=== PATIENT | female | born 1940 | race Caucasian/White ===

== ENCOUNTER 2020-06-02 09:04 | Outpatient (CLI) | payer MEDICARE, SELFPAY ==
--- NOTE | ~2020-06-02 | XR_ITS ---
EXAMINATION: XR thoracic spine 3V DATE: 06/02/2020 09:29 INDICATION: Thoracic radiculopathy TECHNIQUE: AP, lateral and lateral swimmer's views of the thoracic spine were obtained. COMPARISON: None. FINDINGS: There is mild S-shaped curvature of the thoracic spine. Respiratory motion limits the exami nation. The vertebral body heights appear to be maintained. There is focal kyphosis centered in the l ower thoracic spine. There is anterior loss of intervertebral disc space height in the lower thoracic spine. Bone alignment is normal. No fracture is identified. Small degenerative osteophytes project f rom the anterior endplates of multiple vertebral bodies. Calcified left hilar lymph nodes are consist ent with old granulomatous disease. IMPRESSION: 1. Mild thoracic spondylosis without acute findings. Reviewed, dictated and finalized at location A. UREMENT SERVICES MANAGER
== END 2020-06-02 09:05 | disposition home or self-care (01) ==
PROVIDERS: PCP Family Medicine; Visit Provider Family Medicine
DX: M54.14 Radiculopathy, thoracic region (principal)
CPT/HCPCS: 72072

== ENCOUNTER 2020-07-08 10:08 | Inpatient (IN) | payer MEDICARE, SELFPAY ==
[2020-07-08] VITALS (7 sets, daily range): BP systolic 99–143; BP diastolic 63–86; PULSE 63–112; RESP 18–20; TEMP 36.7; O2SAT 92–96; BMI 27.3
--- NOTE | ~2020-07-08 | CT_ITS ---
EXAMINATION: CTA chest PE protocol DATE: 07/08/2020 12:13 INDICATION: Weakness and chest pain TECHNIQUE: Computed tomography angiography (CTA) of the chest was performed with 100 mL Omnipaque-350 intravenous contrast timed to evaluate the pulmonary arteries. Coronal maximum intensity projection 3D-reconstructions were created by the technologist. The dose-length product (DLP) was 368.55 mGy-cm. Automated exposure control and iterative reconstruction technique were employed. COMPARISON: None. FINDINGS: Contrast bolus is well timed for opacification of the pulmonary arteries. There are acute e mboli in the distal aspects of the bilateral main pulmonary arteries which extend into proximal segme ntal branches of the lingular and left lower lobe pulmonary arteries and the right upper, middle, and lower lobe pulmonary arteries. There is straightening of the interventricular septum of the heart. T he heart size is normal. There is mild emphysema. Dependent atelectasis is noted. There is a large hi atal hernia. There are no pathologically enlarged thoracic lymph nodes. There is moderate thoracic sp ondylosis. IMPRESSION: 1. Bilateral central pulmonary emboli with extension into proximal segmental pulmonary arterial branc hes throughout the right lung and in the lingula and lower lobe on the left. Some evidence of right h eart strain. These findings were discussed with the Emergency Department at 1232 hours on 07/08/2020. Reviewed, dictated and finalized at location A. Y WRAPPING MACHINE OPERATOR IMPRESSION: 1. Bilateral central pulmonary emboli with extension into proximal segmental pu lmonary arterial branches throughout the right lung and in the lingula and lowe r lobe on the left. Some evidence of right heart strain. These findings were di scussed with the Emergency Department at 1232 hours on 07/08/2020.
--- NOTE | ~2020-07-08 | XR_ITS ---
EXAMINATION: XR chest 2V DATE: 07/08/2020 11:07 INDICATION: Weakness and chest pain TECHNIQUE: PA and lateral views of the chest are obtained. COMPARISON: None available FINDINGS: The lungs are free of acute opacities. There is a small left pleural effusion. No pneumotho rax is identified. The heart size is normal. There is a large hiatal hernia. Bilateral breast implant s are noted. There is moderate thoracic spondylosis with focal exaggerated kyphosis at the thoracolum bar junction. IMPRESSION: 1. Small pleural effusions. 2. Large hiatal hernia. Reviewed, dictated and finalized at location A. IN HOUSEKEEPER
--- NOTE | 2020-07-08 10:22 | ED.WEAKNESS ---
HPI - Weakness General Chief complaint: Weakness Stated complaint: fatigue Time Seen by Provider: 07/08/20 10:22 Source: patient and family Mode of arrival: wheelchair Limitations: no limitations History of Present Illness HPI Narrative: 79-year-old woman comes in today complaining of a week of progressive weakness and fatigue with exertion. Patient states that she has had some brief intermittent chest pain that comes from under her skin the lasts only a moment or 2. She denies recent illness, fever, cough, shortness of breath, nausea, vomiting, dysuria, syncope, visual changes, facial droop, unilateral weakness, confusion, and language difficulties. Complaint: generalized weakness and lack of energy Onset (ago): week(s) (1) Duration: constant and progressively worsening Location: generalized Migration: none Severity: moderate Relieving factors: rest Exacerbating factors: exertion Associated symptoms: chest pain Related Data Home Medications Medication Instructions Recorded Confirmed multivitamin [Daily Multivitamin] 1 tablet PO DAILY 07/08/20 07/08/20 Allergies Allergy/AdvReac Type Severity Reaction Status Date / Time No Known Allergies Allergy Verified 07/08/20 10:24 Review of Systems Constitutional: Constitutional: Denies chills, Reports fatigue, Denies fever(s) and Reports weakness Eyes: Eyes: Denies change in vision and Denies photophobia ENT: Denies dysphagia, Denies nasal congestion and Denies sore throat Cardiovascular: Cardiovascular: Reports as per HPI, Reports chest pain and Denies radiating jaw, neck or arm pain Respiratory: Respiratory: Denies cough, Denies dyspnea and Denies wheezing Gastrointestinal: Gastrointestinal: Denies abdominal pain, Denies diarrhea, Denies nausea and Denies vomiting Genitourinary: Genitourinary: Reports nocturia and Denies dysuria Musculoskeletal: Musculoskeletal: Denies back pain, Denies arthralgias and Denies joint swelling Integumentary/Breasts: Skin/Breast: Denies pruritus, Denies erythema and Denies rash Neurologic: Denies vertigo, Denies dizziness and Denies syncope Hematologic/Lymphatic: Hematologic/Lymphatic: Denies easy bleeding and Denies easy bruising Allergic/Immunologic: Allergic/Immunologic: Denies lip swelling and Denies tongue swelling PMFSH Surgical History Surgical History Hx of appendectomy Hx of tonsillectomy Social History Social History Smoking status: Never smoker Alcohol intake: never Substance use: never Living arrangements: with family Exam Const: General: healthy appearing and alert Nutritional Appearance: obese Orientation/consciousness: patient oriented x3 Other: mild acute distress. HENMT: Head: normal to inspection Ears: external ears normal and TM's normal bilaterally General nose exam: Normal nares present Face and sinus: normal facial exam Mouth: Yes moist mucous membranes Throat: posterior oropharynx normal Eyes: Conjunctivae: conjunctivae normal EOM: EOMs intact bilaterally Neck: Neck: normal visual inspection and no lymphadenopathy Resp: Effort & Inspection: normal respiratory effort and not labored Auscultation: clear to auscultation bilaterally, no rales, no rhonchi and no wheezes Cardio: Rate: tachycardic Rhythm: regular rhythm Heart sounds: no murmurs GI: GI Palp: Yes Soft to palpation and No Tenderness to palpation present (GI) Auscultation: normal bowel sounds Skin: General skin exam: normal color, no jaundice and no pallor Rashes: no rashes Neuro: General: patient oriented x3, moves all extremities, no focal motor deficits and CN's II-XI intact bilaterally Speech: normal speech Extrem: General: normal to inspection and no clubbing, cyanosis or edema Psych: Appearance: grossly normal and well kempt Mental Status: mental status grossly normal Affect: normal affect Att
--- NOTE | 2020-07-08 10:30 | ECG_ITS ---
Measurements Intervals [place] Rate: 102 P: 18 GA: 165 QRS: 63 QRSD: 86 T: 26 QT: 353 QTc: 461 Interpretive Statements SINUS TACHYCARDIA DELAYED PRECORDIAL R/S TRANSITION BORDERLINE T WAVE ABNORMALITY- INFERIOR LEADS BASELINE ARTIFACT- I, II, III, AVR, AVL, AVF, V3-V6 BORDERLINE ECG Electronically Signed On 07-10-2020 8:31:46 LANDSCAPE DESIGNER by Gunner Funk D.O.
[2020-07-08 10:37] LABS: Add Urine Microscopic? YES; Appearance Urine Clear (Clear); Bilirubin Urine Negative (Negative); Blood Urine Negative (Negative); Color Urine Yellow (Yellow); Glucose Urine UA 3+ (Negative); Ketones Urine 2+ (Negative); Leukocyte Esterase Ur Negative LEU/UL (Negative); Nitrate Urine Negative (Negative); Protein Urine Negative (Negative); Specific Grav Ur 1.015 (1.010-1.020); Urobilinogen Urine 0.2 mg/dL (0.2-1.0); pH Urine 5.5 (5.0-8.0)
[2020-07-08 10:41] LABS: RBC Urine None seen /hpf (0-2); Squamous Epithelial Cell Urine Rare /hpf (Few); WBC Urine None seen /hpf (0-3)
[2020-07-08 10:42] LABS: Bacteria Urine Trace /hpf
[2020-07-08 10:51] LABS: Basophils Absolute Auto 0.02 K/mm3 (0.00-0.10); Basophils Percent Auto 0.2 % (0.0-1.0); Eosinophils Absolute Auto 0.04 K/mm3 (0.02-0.50); Eosinophils Percent Auto 0.5 % (1.0-6.0); Hematocrit 47.7 % (35.0-42.0); Hemoglobin 16.1 g/dL (11.7-13.8); Immature Granulocyte Absolute 0.02 K/mm3 (0.00-0.00); Immature Granulocyte Percent A 0.2 % (0.0-0.0); Lymphocytes Absolute Auto 0.86 K/mm3 (1.10-4.50); Mean Corpuscular HGB Conc 33.8 g/dL (32.0-36.0); Mean Corpuscular Hemoglobin 29.3 pg (27.0-31.0); Mean Corpuscular Volume 86.7 fL (78.0-102.0); Mean Platelet Volume 10.7 fl (9.2-11.8); Monocytes Absolute Auto 0.67 K/mm3 (0.10-0.90); Monocytes Percent Auto 7.8 % (2.0-11.0); Neutrophils Percent Auto 81.3 % (50.0-70.0); Platelet Count Result 206 K/mm3 (150-420); Red Cell Distribution Width 12.2 % (11.6-14.4); White Blood Count 8.6 K/mm3 (4.8-10.8)
[2020-07-08 11:08] LABS: Glucose Point of Care 444 (65-105)
[2020-07-08 11:10] LABS: Lactic Acid Reflex 2.4 mmol/L (0.4-2.0)
[2020-07-08 11:12] LABS: INR 1.1; Partial Thromboplastin Time 26.8 SEC (23.90-30.70); Prothrombin Time 11.6 Seconds (9.50-12.10)
[2020-07-08 11:15] LABS: D Dimer 5.61 mg/L (0.19-0.50)
[2020-07-08 11:17] LABS: Alanine Aminotransferase 34 U/L (14-59); Albumin Level 3.5 g/dL (3.4-5.0); Alkaline Phosphatase 98 U/L (46-116); Anion Gap 16 mmol/L (8-16); Aspartate Amino Transferase 15 U/L (15-37); Bilirubin,Total 0.8 mg/dL (0.00-1.00); Blood Urea Nitrogen 16 mg/dL (7-18); CRP 6.8 mg/dL (0.0-0.9); Calcium 9.3 mg/dL (8.5-10.1); Carbon Dioxide 22 mmol/L (21-32); Chloride 96 mmol/L (98-108); Estimated Glomerular Filt Rate 56; Sodium 134 mmol/L (136-145); Total Protein 7.5 g/dL (6.4-8.2)
[2020-07-08 11:18] LABS: Glucose 562 mg/dL (70-99); Osmolality Calculated 305 mOsm/kg (285-295)
[2020-07-08 11:19] LABS: Thyroid Stimulating Hormone Reflex 2.41 u/IU/mL (0.36-3.74); Troponin I 10.3 ng/L (0.00-60.4)
[2020-07-08] MEDS: SODIUM CHLORIDE 0.9% IV 1,000 ML 999 ML IV CONT (11:35)
[2020-07-08 11:44] LABS: Hemoglobin A1C > 13.7 % (<5.7)
[2020-07-08 12:53] LABS: Glucose Point of Care 398 (65-105)
[2020-07-08] MEDS: ENOXAPARIN 100 MG/ML SYRINGE 85 MG SUB-Q (12:56)
[2020-07-08] MEDS: INSULIN HUMAN REGULAR (*BKC) 100 UNITS/ML 10 UNITS SUB-Q (12:57)
[2020-07-08 13:46] LABS: Reflex Lactic Acid Yes or No Add Lactic
--- NOTE | 2020-07-08 14:03 | PM.IMHP ---
H&P: HPI History of Present Illness Date/Time: 07/08/20 14:03 Chief Complaint: SOB, weakness Narrative: Annmarie Wilks is a 79 year old female who comes to the hospital for weakness and increased SOB. Pt states she is not on any medications except a multivitamin. She saw her PCP about 3 weeks ago for left sided stabbing pains and at that time she was feeling a little weak than normal. Over the last week and especially the last couple days the Pt admits to increased weakness and increased SOB with increased sensation of the stabbing pains under her skin at the left side of her chest. Prior to seeing her PCP 3 weeks ago she admits that she has not seen a provider for about 3 years. Pt is a former smoker 30 years ago and is not on any hormone therapy. Pt admits to being rather sedentary since her partner . Pt does say that her breathing has improved since coming to the hospital. Currently she is on room air with SpO2 95% or better. Pt just found out today she is diabetic and admits to having lost 30 lbs over the last 3 months and has had decreased appetite as well. Review of Systems Constitutional: Constitutional: Reports no additional constitutional complaints, Denies fever(s), Denies headache(s), Reports weakness and Reports weight loss Cardiovascular: Cardiovascular: Reports no additional cardiovascular complaints, Reports chest pain (as noted in the HPI) and Reports chest pain at rest (as noted in the HPI) Respiratory: Respiratory: Reports no additional respiratory complaints, Reports dyspnea (and this has improved) and Reports dyspnea on exertion (this has gotten worse over the last couple days to week) Gastrointestinal: Gastrointestinal: Reports no additional gastrointestinal complaints Comments: decreased appetite Musculoskeletal: Musculoskeletal: Reports muscle weakness Neurologic: Reports system reviewed and no additional complaints, except as documented, Denies dizziness, Denies headache(s), Denies lack of coordination, Denies focal weakness and Denies loss of vision [facility] Past Medical History Medical History (Updated 07/08/20 @ 14:31 by ALINE Hogan) Bilateral pulmonary embolism Chest pain Diabetes mellitus, new onset Electrolyte imbalance Surgical History Surgical History Hx of appendectomy Hx of tonsillectomy Social History Social History Smoking status: Former smoker Tobacco type: cigarettes Second hand tobacco smoke exposure: Yes Smoking end date: 05/19/89 Alcohol intake: never Substance use: never Living arrangements: with family Gender identity (if verbalized by the patient): Female Spiritual care concerns: No Meds Home Medications and Allergies Home Medications Medication Instructions Recorded Confirmed Type multivitamin [Daily Multivitamin] 1 tablet PO DAILY 07/08/20 07/08/20 History Allergies Allergy/AdvReac Type Severity Reaction Status Date / Time No Known Allergies Allergy Verified 07/08/20 10:24 Vital Signs Vital Signs - 24 hr 07/08/20 10:15 07/08/20 12:26 07/08/20 12:47 Temperature 98.1 F Pulse Rate 109 H 92 63 Respiratory Rate 20 Blood Pressure 143/86 H 122/74 112/63 Pulse Oximetry 95 96 95 07/08/20 13:30 Temperature 98.1 F Pulse Rate 100 Respiratory Rate 18 Blood Pressure 128/83 Pulse Oximetry 95 Exam Const: General: cooperative, ill appearing and uncomfortable Nutritional Appearance: overweight Resp: Effort & Inspection: labored and no retractions Auscultation: rhonchi (mild scattered throughout) and diminished lung sounds Cardio: Rate: regular rate Heart sounds: S1 normal heart sound present and S2 normal heart sound present GI: GI Palp: Yes Soft to palpation and No Tenderness to palpation present (GI) Neuro: General: oriented to person, oriented to place and oriented to time Cranial nerves: Yes CN's I
[2020-07-08] MEDS: SODIUM CHLORIDE 0.9% IV 1,000 ML 125 ML IV CONT ×2 (14:13→22:02)
[2020-07-08 14:20] LABS: Lactic Acid 1.5 mmol/L (0.4-2.0)
[2020-07-08 16:52] LABS: Glucose Point of Care 313 (65-105)
[2020-07-08] MEDS: WARFARIN (*PBKC) 5 MG TABLET PO (16:59)
[2020-07-08 17:30] LABS: Troponin I 20.1 ng/L (0.00-60.4)
[2020-07-08 20:36] LABS: Glucose Point of Care 292 (65-105)
[2020-07-08 23:31] LABS: Troponin I 18.8 ng/L (0.00-60.4)
[2020-07-09] VITALS (8 sets, daily range): BP systolic 121–141; BP diastolic 66–84; PULSE 74–91; RESP 18–20; TEMP 36.2–36.9; O2SAT 92–94
[2020-07-09] MEDS: ENOXAPARIN 100 MG/ML SYRINGE 85 MG SUB-Q ×3 (00:40→20:48)
[2020-07-09 05:28] LABS: Basophils Absolute Auto 0.02 K/mm3 (0.00-0.10); Basophils Percent Auto 0.3 % (0.0-1.0); Eosinophils Absolute Auto 0.16 K/mm3 (0.02-0.50); Eosinophils Percent Auto 2.6 % (1.0-6.0); Hematocrit 40.8 % (35.0-42.0); Hemoglobin 13.7 g/dL (11.7-13.8); Immature Granulocyte Absolute 0.02 K/mm3 (0.00-0.00); Immature Granulocyte Percent A 0.3 % (0.0-0.0); Lymphocytes Absolute Auto 0.99 K/mm3 (1.10-4.50); Lymphocytes Percent Auto 16.3 % (18.0-42.0); Mean Corpuscular HGB Conc 33.6 g/dL (32.0-36.0); Mean Corpuscular Hemoglobin 29.6 pg (27.0-31.0); Mean Corpuscular Volume 88.1 fL (78.0-102.0); Mean Platelet Volume 10.4 fl (9.2-11.8); Monocytes Percent Auto 8.2 % (2.0-11.0); Neutrophils Absolute Auto 4.4 K/mm3 (1.7-7.2); Neutrophils Percent Auto 72.3 % (50.0-70.0); Platelet Count Result 192 K/mm3 (150-420); Red Blood Count 4.63 M/mm3 (4.20-5.40); Red Cell Distribution Width 12.3 % (11.6-14.4); White Blood Count 6.1 K/mm3 (4.8-10.8)
[2020-07-09 05:40] LABS: INR 1.2; Prothrombin Time 12.6 Seconds (9.50-12.10)
[2020-07-09 05:47] LABS: Alanine Aminotransferase 19 U/L (14-59); Albumin Level 2.7 g/dL (3.4-5.0); Alkaline Phosphatase 74 U/L (46-116); Anion Gap 13 mmol/L (8-16); Aspartate Amino Transferase 16 U/L (15-37); Bilirubin,Total 0.6 mg/dL (0.00-1.00); Blood Urea Nitrogen 12 mg/dL (7-18); Calcium 7.9 mg/dL (8.5-10.1); Carbon Dioxide 22 mmol/L (21-32); Chloride 102 mmol/L (98-108); Estimated CRCL calculation 56 ml/min; Estimated Glomerular Filt Rate > 60; Glucose 330 mg/dL (70-99); Osmolality Calculated 296 mOsm/kg (285-295); Potassium 3.6 mmol/L (3.5-5.1); Sodium 137 mmol/L (136-145); Total Protein 5.9 g/dL (6.4-8.2)
[2020-07-09] MEDS: SODIUM CHLORIDE 0.9% IV 1,000 ML 125 ML IV CONT (06:00)
[2020-07-09] MEDS: metFORMIN HCL XR 500 MG TAB.SR.24H PO ×2 (08:20→16:56)
[2020-07-09] MEDS: MULTIVITAMINS THERAPEUTIC TAB (*BKC) 1 TABLET PO (08:20)
[2020-07-09 11:29] LABS: Glucose Point of Care 314 (65-105)
--- NOTE | 2020-07-09 14:09 | PM.IMPN ---
Progress Note: A&P Assessment and Plan (1) Bilateral pulmonary embolism: Code(s): I26.99 - Other pulmonary embolism without acute cor pulmonale Status: Acute Assessment and Plan: 07/08/2020 Radiology report indicates: Bilateral central PE with extension into proximal segmental pulmonary branches throughout right lung and in lingula & lower lobe of the left with evidence of right heart strain, first troponin negative, no increased oxygen demand at this time, on room air, minimal labored breathing, Therapeutic Lovenox while bridging Coumadin, daily INR, cardiac monitoring, current INR 1.1 07/09/2020 Continue with Lovenox and bridge to Coumadin, INR this AM 1.2, will continue to monitor, no signs of bleeding. (2) Diabetes mellitus, new onset: Code(s): E11.9 - Type 2 diabetes mellitus without complications Status: Acute Assessment and Plan: 07/08/2020 Glucose in the ER was 562, Pt given insulin in ER, 1 Liter NS bolus, 125 ml/h on the floor NS, SSI med dose, hypoglycemic protocol, A1C > 13.7, Carb Consistent Diet, ACHS Accu-checks, UA shows: 3+ glucose, 2+ ketones, trace bacteria, Post ER SQ insulin glucose 398, Osmolality 305, Metformin ER started 500 mg daily at this time. 07/09/2020 Continue as above with following changes, increased SSI from Med to High, changed Metformin to BID, DC'ed IVF, Glucose low 300s and hoping changes will improve glycemic control. (3) Chest pain: Code(s): R07.9 - Chest pain, unspecified Status: Acute Assessment and Plan: 07/08/2020 Pt states intermittent stabbing like pain just under her skin, initial Troponin 10.3 (negative values are 0.00 to 60.4), cardiac monitoring, morphine for pain, trending Troponin, monitoring VS Q4H 07/09/2020 CP improved today, not requiring pain medications, Serial Troponin: 10.3, 20.1, 18.8, VSS (4) Electrolyte imbalance: Code(s): E87.8 - Other disorders of electrolyte and fluid balance, not elsewhere classified Status: Acute Assessment and Plan: 07/08/2020 Na and Cl were a little low at 134/96, Pt received NS bolus in the ER and will continue with 125 ml/h on the floor. 07/09/2020 Electrolytes within normal limits today, Calculated Ca++ 8.9 Subjective Date/time seen: 07/09/20 14:09 Pt states she is breathing a little better today. She has not had any sever chest pain and states the sharp pains she was having are really light today and that she does not require any pain medication for this pain. Pt has not other complaints today. No changes in appetite and has not complained of any abdominal pain after having started the Metformin. I provided education to the Pt regarding Multivitamins, dietary intake, and Coumadin. Pt verbalized understanding. Review of Systems Constitutional: Constitutional: Reports no additional constitutional complaints Cardiovascular: Cardiovascular: Reports chest pain (Improved today, no Pain medication requirement, tolerable) Respiratory: Respiratory: Reports dyspnea (Improved today, no extra O2 requirement) Gastrointestinal: Gastrointestinal: Reports no additional gastrointestinal complaints, Denies change in stool character, Denies GI cramping and Denies dyspepsia Musculoskeletal: Musculoskeletal: Reports no additional musculoskeletal complaints Exam Const: General: cooperative, comfortable (Yesterday facial expression indicated discomfort, today improved), no acute distress, alert, awake and Physically active Resp: Effort & Inspection: normal respiratory effort Auscultation: clear to auscultation bilaterally Cardio: Rate: regular rate Heart sounds: S1 normal heart sound present and S2 normal heart sound present GI: GI Palp: Yes Soft to palpation and No Tenderness to palpation present (GI) Auscultation: normal bowel sounds Neuro: General: oriented to person, oriented to place and oriented to time Cranial nerves: Yes CN's II-XII intact bilaterally (grossly intact ) Extrem: General: full ROM
--- NOTE | 2020-07-09 15:35 | PC.NURSE ---
24 hour urine completed. Taken to lab
[2020-07-09 16:31] LABS: Glucose Point of Care 294 (65-105)
[2020-07-09] MEDS: WARFARIN (*PBKC) 5 MG TABLET PO (16:56)
[2020-07-09 20:50] LABS: Glucose Point of Care 268 (65-105)
[2020-07-10] VITALS: BP 138/88; PULSE 81; RESP 20; TEMP 37.1; O2SAT 93
[2020-07-10 03:51] VITALS: BP 142/75; PULSE 87; RESP 20; TEMP 37.3; O2SAT 93
[2020-07-10 05:24] LABS: Hematocrit 39.6 % (35.0-42.0); Hemoglobin 13.7 g/dL (11.7-13.8); Mean Corpuscular HGB Conc 34.6 g/dL (32.0-36.0); Mean Corpuscular Hemoglobin 29.8 pg (27.0-31.0); Mean Corpuscular Volume 86.3 fL (78.0-102.0); Mean Platelet Volume 11.5 fl (9.2-11.8); Platelet Count Result 160 K/mm3 (150-420); Red Blood Count 4.59 M/mm3 (4.20-5.40); Red Cell Distribution Width 12.1 % (11.6-14.4); White Blood Count 7.2 K/mm3 (4.8-10.8)
[2020-07-10 05:35] LABS: Anion Gap 12 mmol/L (8-16); Blood Urea Nitrogen 7 mg/dL (7-18); Calcium 7.9 mg/dL (8.5-10.1); Carbon Dioxide 21 mmol/L (21-32); Chloride 102 mmol/L (98-108); Estimated CRCL calculation 74 ml/min; Estimated Glomerular Filt Rate > 60; Glucose 314 mg/dL (70-99); INR 1.5; Osmolality Calculated 290 mOsm/kg (285-295); Potassium 3.2 mmol/L (3.5-5.1); Prothrombin Time 15.8 Seconds (9.50-12.10); Sodium 135 mmol/L (136-145)
[2020-07-10 07:35] VITALS: BP 131/80; PULSE 89; RESP 20; TEMP 36.7; O2SAT 94
[2020-07-10 08:00] VITALS: PULSE 89
[2020-07-10] MEDS: MULTIVITAMINS THERAPEUTIC TAB (*BKC) 1 TABLET PO (08:25)
[2020-07-10] MEDS: ENOXAPARIN 100 MG/ML SYRINGE 85 MG SUB-Q (08:26)
[2020-07-10] MEDS: metFORMIN HCL XR 500 MG TAB.SR.24H PO (08:26)
[2020-07-10] MEDS: POTASSIUM CHLORIDE 20 MEQ TABLET 40 MEQ PO (09:01)
--- NOTE | 2020-07-10 11:05 | PM.DS ---
DS: Admitting Diagnosis Admitting Diagnosis Admitting Diagnosis: PE, New onset DM <ALINE Hogan - Last Filed: 07/10/20 12:07> DS: Discharge Diagnosis Discharge Diagnosis (1) Bilateral pulmonary embolism: Code(s): I26.99 - Other pulmonary embolism without acute cor pulmonale <ALINE Hogan - Last Filed: 07/10/20 12:07> Status: Acute <ALINE Hogan - Last Filed: 07/10/20 12:07> Assessment and Plan: 07/08/2020 Radiology report indicates: Bilateral central PE with extension into proximal segmental pulmonary branches throughout right lung and in lingula & lower lobe of the left with evidence of right heart strain, first troponin negative, no increased oxygen demand at this time, on room air, minimal labored breathing, Therapeutic Lovenox while bridging Coumadin, daily INR, cardiac monitoring, current INR 1.1 07/09/2020 Continue with Lovenox and bridge to Coumadin, INR this AM 1.2, will continue to monitor, no signs of bleeding. 07/10/2020 Will be sending Pt home with Lovenox so that she can continue with injections while bridging Coumadin, INR today 1.5, anticipate Pt will be therapeutic on the low side in 2-3 days, will give a 5 days script of Lovenox BID with order for INR prior to seeing her PCP. <ALINE Hogan - Last Filed: 07/10/20 12:07> (2) Diabetes mellitus, new onset: Code(s): E11.9 - Type 2 diabetes mellitus without complications <ALINE Hogan - Last Filed: 07/10/20 12:07> Status: Acute <ALINE Hogan - Last Filed: 07/10/20 12:07> Assessment and Plan: 07/08/2020 Glucose in the ER was 562, Pt given insulin in ER, 1 Liter NS bolus, 125 ml/h on the floor NS, SSI med dose, hypoglycemic protocol, A1C > 13.7, Carb Consistent Diet, ACHS Accu-checks, UA shows: 3+ glucose, 2+ ketones, trace bacteria, Post ER SQ insulin glucose 398, Osmolality 305, Metformin ER started 500 mg daily at this time. 07/09/2020 Continue as above with following changes, increased SSI from Med to High, changed Metformin to BID, DC'ed IVF, Glucose low 300s and hoping changes will improve glycemic control. 07/10/2020 Pt was on a medium SSI and this was increased to high SSI yesterday, will continue Metformin BID at [place] and will have Pt start Lantus 10 Units daily, will also write for Glucose monitoring supplies. Pt to f/u with PCP regarding new DM when she follows up for post hospitalization and INR lab work <ALINE Hogan - Last Filed: 07/10/20 12:07> (3) Chest pain: Code(s): R07.9 - Chest pain, unspecified <ALINE Hogan - Last Filed: 07/10/20 12:07> Status: Acute <ALINE Hogan - Last Filed: 07/10/20 12:07> Assessment and Plan: 07/08/2020 Pt states intermittent stabbing like pain just under her skin, initial Troponin 10.3 (negative values are 0.00 to 60.4), cardiac monitoring, morphine for pain, trending Troponin, monitoring VS Q4H 07/09/2020 CP improved today, not requiring pain medications, Serial Troponin: 10.3, 20.1, 18.8, VSS 07/10/2020 Pt has not complained of any CP today <ALINE Hogan - Last Filed: 07/10/20 12:07> (4) Electrolyte imbalance: Code(s): E87.8 - Other disorders of electrolyte and fluid balance, not elsewhere classified <ALINE Hogan - Last Filed: 07/10/20 12:07> Status: Acute <ALINE Hogan - Last Filed: 07/10/20 12:07> Assessment and Plan: 07/08/2020 Na and Cl were a little low at 134/96, Pt received NS bolus in the ER and will continue with 125 ml/h on the floor. 07/09/2020 Electrolytes within normal limits today, Calculated Ca++ 8.9 07/10/2020 Potassium 3.2 this AM, supplemented with 40 mEq, recheck chemistry as outpatient <Heber Wilson, TRAFFIC REPRESENTATIVE-C - Last Filed: 07/10/20 12:07> DS: Summary Hospital Course Hospital Course: Pt breathing improved, no complaints of CP, Educated on new onset DM and Lantus, mo
[2020-07-10 11:45] LABS: Glucose Point of Care 257 (65-105)
--- NOTE | 2020-07-10 12:40 | PC.NURSE ---
Patients daughter her to transport her home. All discharge instructions and education reviewed with Patient and daughter. Both parties state understanding. All belongings gathered and sent home with patient. Patient accompanied to front door via wheelchair by this nurse. Left via private vehicle with daughter.
[2020-07-12 06:12] LABS: Cortisol Random 25.6 mcg/dL (***)
[2020-07-14 17:18] LABS: Cortisol, Saliva 0.04 mcg/dL
--- NOTE | 2020-07-18 13:47 | PC.NURSE ---
Unable to contact for discharge call back.
== END 2020-07-10 12:45 | disposition home or self-care (01) | DRG 176 ==
LOC: CHSED 10:10 → CHS2ND 13:00
PROVIDERS: Nurse Practitioner Family; Admitting Provider Emergency Medicine; Emergency Provider Emergency Medicine; PCP Family Medicine; Visit Provider Emergency Medicine
DX: I26.99 Other pulmonary embolism without acute cor pulmonale (principal); K44.9 Diaphragmatic hernia without obstruction or gangrene; E11.9 Type 2 diabetes mellitus without complications; E87.8 Other disorders of electrolyte and fluid balance, not elsewhere classified; Z87.891 Personal history of nicotine dependence
CPT/HCPCS: 36415; 71046; 71275; 80048; 80053; 81001; 82530; 82533; 82948; 83036; 83605; 84443; 84484; 85025; 85027; 85380; 85610; 85730; 86140; 87040; 93005; 96360; 99285; A9270; J1650; J1815; J7030; Q9967

== ENCOUNTER 2020-07-13 13:52 | Outpatient (CLI) | payer MEDICARE, SELFPAY ==
[2020-07-13 14:16] LABS: INR 3.2; Prothrombin Time 32.3 Seconds (9.50-12.10)
[2020-07-13 14:43] LABS: Anion Gap 11 mmol/L (8-16); Blood Urea Nitrogen 8 mg/dL (7-18); Carbon Dioxide 27 mmol/L (21-32); Chloride 97 mmol/L (98-108); Estimated Glomerular Filt Rate > 60; Glucose 337 mg/dL (70-99); Osmolality Calculated 291 mOsm/kg (285-295); Potassium 3.4 mmol/L (3.5-5.1); Sodium 135 mmol/L (136-145)
== END 2020-07-13 13:53 | disposition home or self-care (01) ==
LOC: CHSLAB 13:54
PROVIDERS: PCP Family Medicine; Visit Provider Nurse Practitioner Family
DX: I26.99 Other pulmonary embolism without acute cor pulmonale (principal); E87.8 Other disorders of electrolyte and fluid balance, not elsewhere classified
CPT/HCPCS: 36415; 80048; 85610

== ENCOUNTER 2020-07-18 08:13 | Outpatient (CLI) | payer MEDICARE, SELFPAY ==
[2020-07-18 09:01] LABS: Prothrombin Time 53.9 Seconds (9.64-11.0)
[2020-07-18 09:02] LABS: INR 5.5
[2020-07-18 09:31] LABS: Anion Gap 9 mmol/L (8-16); Blood Urea Nitrogen 11 mg/dL (7-18); Calcium 10.1 mg/dL (8.5-10.1); Carbon Dioxide 29 mmol/L (21-32); Chloride 99 mmol/L (98-108); Estimated Glomerular Filt Rate > 60; Glucose 276 mg/dL (70-99); Osmolality Calculated 293 mOsm/kg (285-295); Potassium 3.9 mmol/L (3.5-5.1); Sodium 137 mmol/L (136-145)
== END 2020-07-18 08:14 | disposition home or self-care (01) ==
LOC: CHSLAB 08:15
PROVIDERS: PCP Family Medicine; Visit Provider Family Medicine
DX: E11.9 Type 2 diabetes mellitus without complications (principal); I26.99 Other pulmonary embolism without acute cor pulmonale
CPT/HCPCS: 36415; 80048; 85610

== ENCOUNTER 2020-09-07 14:24 | Outpatient (CLI) | payer MEDICARE, SELFPAY ==
--- NOTE | ~2020-09-07 | XR_ITS ---
XR lumbar spine 2-3V DATE: 09/07/2020 14:42 INDICATION: Low back pain radiating to right leg for several months TECHNIQUE: AP, lateral, coned lateral lumbosacral views COMPARISON: None FINDINGS: There is diffuse osteopenia. Acute lumbosacral angle. There is moderate degenerative disc disease at L1-2. There is severe degenerative disease at L2-3. There is mild degenerative disease at L3-4. The lumbar pedicles are intact. No fracture or bone destruction is evident. The lumbar pedicles are i ntact. The sacroiliac joints are normal. IMPRESSION: Diffuse osteopenia Multilevel degenerative disc disease, most pronounced at L2-3 Reviewed, dictated and finalized at location A.
== END 2020-09-07 14:25 | disposition home or self-care (01) ==
LOC: CHSIMG 14:27
PROVIDERS: PCP Family Medicine; Visit Provider Family Medicine
DX: M54.10 Radiculopathy, site unspecified (principal)
CPT/HCPCS: 72100

== ENCOUNTER 2022-07-30 09:53 | Emergency (ER) | payer MEDICARE, SELFPAY ==
--- NOTE | ~2022-07-30 | XR_ITS ---
EXAMINATION: XR shoulder LT min 2V DATE: 07/30/2022 10:38 INDICATION: Left shoulder pain. TECHNIQUE: 4 views of left shoulder were obtained. COMPARISON: None. FINDINGS: Bone alignment is normal. No fracture. There is moderate osteoarthritis of glenohumeral swathi nt and mild osteoarthritis of acromioclavicular joint. IMPRESSION: 1. Polyarticular osteoarthritis. Reviewed, dictated and finalized at location A.
[2022-07-30 10:02] VITALS: BP 173/97; PULSE 80; RESP 16; TEMP 36.3; O2SAT 98
--- NOTE | 2022-07-30 10:10 | ED.EXTPRO ---
HPI - Extremity Problem General Chief complaint: Extremity Injury, Upper Stated complaint: left shoulder pain Time Seen by Provider: 07/30/22 09:56 Source: patient and RN notes reviewed Mode of arrival: ambulatory Limitations: no limitations History of Present Illness HPI Narrative: Patient states that she has been having pain in her left shoulder and arm for the last 2 weeks. Now it is to the point where it hurts so bad she can not sleep at night. Seems to be in her shoulder joint and extending down into her humerus. She denies any trauma. She denies any fever chills nausea vomiting. She has had problems with a fracture in her upper back years ago. She is concerned maybe she had a pinched nerve. MD Complaint: extremity pain Onset (ago): week(s) (2) Pain Consistency: intermittent Location: left and upper extremity Quality: aching Radiation: distal Relieving factors: nothing Exacerbating factors: range of motion and palpation Associated symptoms: denies other symptoms Related Data Home Medications Medication Instructions Recorded Confirmed multivitamin 1 tablet PO DAILY 07/08/20 07/30/22 Allergies Allergy/AdvReac Type Severity Reaction Status Date / Time metformin AdvReac Diarrhea Verified 07/30/22 10:00 [facility] Past Medical History Medical History (Updated 07/30/22 @ 11:19 by Nikhil Chapa MD) Bilateral pulmonary embolism Chest pain Diabetes mellitus, new onset Electrolyte imbalance Surgical History Surgical History Hx of appendectomy Hx of tonsillectomy Social History Social History Smoking status: Former smoker Tobacco type: cigarettes Second hand tobacco smoke exposure: Yes Smoking end date: 05/19/89 Alcohol intake: never Substance use: never Living arrangements: with family Gender identity (if verbalized by the patient): Female Spiritual care concerns: No Course Vital Signs Vital signs: Vital Signs Temperature 36.3 C L 07/30/22 10:02 Pulse Rate 80 07/30/22 10:02 Respiratory Rate 16 07/30/22 10:02 Blood Pressure 173/97 H 07/30/22 10:02 Pulse Oximetry 98 07/30/22 10:02 Oxygen Delivery Room Air 07/30/22 10:02 Temperature 36.3 C L 07/30/22 10:02 Pulse Rate 80 07/30/22 10:02 Respiratory Rate 16 07/30/22 10:02 Blood Pressure 173/97 H 07/30/22 10:02 Pulse Oximetry 98 07/30/22 10:02 Oxygen Delivery Room Air 07/30/22 10:02 MDM - Extremity (Nontraumatic) MDM Narrative Medical decision making narrative: Differential diagnosis: Shoulder fracture, shoulder dislocation, adhesive capsulitis, subacromial bursitis, shoulder strain. Discharge Plan Discharge Clinical Impression: Frozen shoulder Qualifiers: Laterality: left Qualified Code(s): M75.02 - Adhesive capsulitis of left shoulder Patient Disposition: Home, Self-Care Condition: Improved Instructions: Adhesive Capsulitis (ED) Additional Instructions: follow-up with your primary care physician. They may want you to see orthopedic physician for further treatment or evaluation of your left shoulder. Prescriptions: No Action multivitamin Tablet 1 tablet PO DAILY warfarin 5 mg tablet 5 mg PO DAILY Qty: 30 1RF insulin glargine [Lantus U-100 Insulin] 100 unit/mL solution 10 unit subcut QAM Qty: 10 1RF Rx Instructions: Please educate Pt on use of the insulin pen. Pt is a New Onset DM. Thank you (DME) blood-glucose meter [Blood Glucose Monitoring] Kit See Rx Instructions .ROUTE .MEDSUPPLY Qty: 1 0RF Rx Instructions: three times a day before meals (DME) lancets-blood glucose strips 30 gauge combo pack See Rx Instructions .ROUTE .MEDSUPPLY Qty: 200 0RF Rx Instructions: three times a day before meals Follow-up/Referrals: Justin,MD Brian [Primary Care Provider] - Time of Disposition: 11:19
[2022-07-30 11:29] VITALS: BP 129/96; PULSE 90; RESP 16; TEMP 36.7; O2SAT 98
== END 2022-07-30 11:31 | disposition home or self-care (01) ==
PROVIDERS: Emergency Provider Emergency Medicine; PCP Family Medicine
DX: M75.02 Adhesive capsulitis of left shoulder (principal); E11.9 Type 2 diabetes mellitus without complications; Z86.711 Personal history of pulmonary embolism
CPT/HCPCS: 73030; 99283

== ENCOUNTER 2025-03-18 08:18 | Outpatient (CLI) | payer MEDICARE, SELFPAY ==
--- OUTSIDE RECORDS SUMMARY | 2025-03-18 08:41 | XMS_ITS | Encounter Summary ---
Author Organization [facility] Address [address] [place] [id number] Care Team Providers Care Nurse Case Manager Name Role Phone Brian Anderson MD Primary Care Provider [phone] Encounter Details Date Type Department Care Team (Late st Contact Info) Description 08/02/2021 Telephone [facility] [address] [place] [id number] Nathalie Terry, Social History Tobacco Use Types Packs/Day Years Used Date Smoking Tobacco: Former Smokeless Tobacco: Never Comments:quit 26 years ago AUDIT-C Answer Date Recorded Q1: How often do you have a drink containing alc ohol? Monthly or less 07/04/2021 Average Number of Drinks Not on file 022 Q3: How often do you have si x or more drinks on one occasion? Less than monthly 07/04/2021 Comments Unknown Sex and Gender Information Value Date Recorded Sex Assigned at Not on file Legal Sex Female 9:56 AM BR[employer] Gender Identity Not on file Sexual Orientation Not on file documented as of this encounter Plan of Treatment Not on file documented as of this encounter Visit Diagnoses Not on filedocumented in this encounter Care Teams Nurse Case Manager Relationship Specialty Start Date End Date Brian Anderson MD PCP - General Family Medicine 11/17/20 documented as of this encounter
--- OUTSIDE RECORDS SUMMARY | 2025-03-18 08:41 | XMS_ITS | Clinical Summary ---
Author Organization [facility] Address [address] [place] [address] Care Team Providers Care Cosmetic Maker Name Role Phone Brian Anderson MD Primary Care Provider [phone]- [phone] Allergies Active Allergy Reactions Criticality Noted Date Comments Metformin Other (See comments) Low 11/23/2020 Abdominal pain Medications multivitamin with minerals tablet Take 1 tablet by mouth daily Active aspirin 81 mg enteric coated tablet Take 1 tablet (81 mg total) by mouth daily Active Lacto.acidophil us-Bif.animalis 32 billion cell capsule Take by mouth Active calcium citrate-vitamin D2 250 mg-2.5 mcg (100 unit) per tablet Take 1 tablet by mouth 2 (two) times a day Active polyethylene glycol (MIRALAX) 17 gram/dose powder Take 1 capful daily or every other day for constipation management. Consider taking at bedtime. 595 g 5 2 Active dicyclomine (BENTYL) 10 mg capsule Take 1-2 pills up to 4 times daily as needed for abdominal cramping and pain 60 capsule 5 2 Active warfarin (COUMADIN) 5 mg tablet Take 1 tablet (5 mg total) by mouth daily 3 Active lancets misc 1 each by other route daily E11.9 100 each 3 3 Active blood-glucose meter kit Check blood sugar once daily. E11.9 1 kit 3 Active pen needle, diabetic 31 gauge x 5/16 needle Inject 1 Device under the skin daily E11.9 100 each 4 4 Active LANTUS 100 unit/mL (3 mL) pen for injectionIndica tions:Type 2 diabetes mellitus with diabetic polyneuropathy, with long-term current use of insulin ([facility]) Inject 16 Units under the skin daily E11.9. formulary change from semglee. 15 mL 4 5 Active blood glucose diagnostic (glucose blood) stripIndication s:Type 2 diabetes mellitus with diabetic polyneuropathy, with long-term current use of insulin ([facility]) Check blood sugar daily with One Touch Ultra Blue test strips. E11.9 100 each 3 5 Active Active Problems Problem Noted Date Diagnosed Date Thrombocytopenia 07/13/2021 Large hiatal hernia 06/27/2021 History of constipation 06/27/2021 Hyperlipidemia associated with type 2 diabetes m ellitus 02/27/2021 Assessment & Plan (03/08/2024 5:21 PM CDT): This is a chronic condition which is not at goal . Goal is not on statin therapy Encouraged to eat healthy, include fresh fruits and vegetables daily and avoid eating fried foods more than once per week. Assessment & Plan (11/05/2023 4:46 PM CDT): This is a chronic condition which is not at goal . Goal is LDL less than 70 not on statin therapy Encouraged to eat healthy, include fresh fruits and vegetables daily and avoid eating fried foods more than once per week. Encouraged to take medications as prescribed. Assessment & Plan (07/02/2023 12:11 PM SWEETBREAD TRIMMER): This is a chronic condition which is not at goal of LDL less than 70 not on statin therapy Encouraged to eat healthy, include fresh fruits and vegetables daily and avoid eating fried foods more than once per week. Encouraged to take medications as prescribed. Assessment & Plan (02/26/2023 11:25 AM CDT): This is a chronic condition which is not at goal of LDL less than 70 not on statin therapy due to age and frail condition. Encouraged to eat healthy, include fresh fruits and vegetables daily and avoid eating fried foods more than once per week. Encouraged to take medications as prescribed. Assessment & Plan (09/26/2022 11:19 AM CDT): This is a chronic condition which is not at goal of LDL less than 70 not on statin therapy age and weakness Encouraged to eat healthy, include fresh fruits and vegetables daily and avoid eating fried foods more than once per week. Encouraged to take medications as prescribed. Assessment & Plan (04/29/2022 3:52 PM SWEETBREAD TRIMMER): This is a chronic condition which is not at goal. Goal is less than 70. Personally reviewed lipid panel. LDL - 129 currently not on a statin. not starting a statin on patient due to age and weakness. Encouraged to eat healthy, include fresh fruits and vegetables daily and avoid eating fried foods more than once per week. Encouraged to take medications as prescribed. Assessment & Plan (12/06/2021 12:03 PM CDT): This is a chronic condition which is not at goal. Goal is less than 70. Personally reviewed lipid panel. LDL - 129 currently not on a statin. not starting a statin on patient due to age and weakness. Repeat panel ordered but not obtained. Encouraged to eat healthy, include fresh fruits and vegetables daily and avoid eating fried foods more than once per week. Encouraged to take medications as prescribed. Assessment & Plan (09/03/2021 11:56 AM CDT): This is a chronic condition which is not at goal. Goal is less than 70. Personally reviewed lipid panel. LDL - 129 currently not on a statin. not starting a statin on patient due to age and weakness. Repeat panel ordered but not obtained. Encouraged to eat healthy, include fresh fruits and vegetables daily and avoid eating fried foods more than once per week. Encouraged to take medications as prescribed. Assessment & Plan (06/04/2021 12:20 PM SWEETBREAD TRIMMER): This is a chronic condition which is not at goal. Goal is less than 70. Personally reviewed lipid panel. LDL - 129 currently not on a statin. not starting a statin on patient due to age and weakness. Encouraged to eat healthy, include fresh fruits and vegetables daily and avoid eating fried foods more than once per week. Encouraged to take medications as prescribed. Assessment & Plan (02/27/2021 3:55 PM CDT): This is a chronic condition which is not at goal. Goal is less than 70. Personally reviewed lipid panel. LDL - 129 currently not on a statin. not starting a statin on patient due to age and weakness. Encouraged to eat healthy, include fresh fruits and vegetables daily and avoid eating fried foods more than once per week. Encouraged to take medications as prescribed. Closed compression fracture of L1 lumbar vertebr a, sequela 02/20/2021 Senile osteoporosis 01/11/2021 Type 2 diabetes mellitus, wi th long-term current use of insulin 11/23/2020 Assessment & Plan (03/08/2024 5:20 PM CDT): This is a chronic condition which is at goal without hypoglycemia . Goal is less than 7%. Personally reviewed most recent A1c - Lab Results Component Value Date HGBA1C 6.9 03/08/2024 Personally reviewed POC blood sugar- at goal of 80-180 Lab Results Component Value Date POCGLU 136 03/08/2024 Medication- Continue semglee 16 units daily - as per formulary Monitor blood sugar 2 times a day. Encouraged annual eye exam. Monofilament foot exam completed. Protective senses - not intact eGFR- 90 Kidney function-normal Urine microalbumin/creatinine ratio - at goal. Goal is <30 not treated with RUBÉN/ARB Assessment & Plan (11/05/2023 4:46 PM CDT): This is a chronic condition which is at goal . Goal is less than 7%. Personally reviewed most recent A1c - Lab Results Component Value Date HGBA1C 7.2 11/05/2023 Personally reviewed POC blood sugar- at goal of 80-180 Lab Results Component Value Date POCGLU 112 11/05/2023 Medication- continue simply 16 units daily Monitor blood sugar daily a.m.. Encouraged annual eye exam. Monofilament foot exam completed. 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 Goal is <30 not treated with RUBÉN/ARB B/P today- at goal after 15 minutes of rest . Goal is <140/90. Personally reviewed lipid panel. Not at goal. Goal is less than 70. Not on statin therapy due to her age Assessment & Plan (07/02/2023 12:13 PM SWEETBREAD TRIMMER): This is a chronic condition which is at goal of less than 7-8%. Personally reviewed most recent A1c - Lab Results Component Value Date HGBA1C 7.2 07/02/2023 Personally reviewed POC blood sugar- at goal 80-180 Lab Results Component Value Date POCGLU 163 07/02/2023 Medication- switched lantus to semglee 16 units daily - as per formulary. Monitor blood sugar continuously with dexcom 7 sensor. Instructed on use of dexcom 7 sensor in office today; First sensor placed Encouraged annual eye exam. Monofilament foot exam completed. loss of protective senses. Personally reviewed CMP eGFR- 90 Kidney function- normal Urine microalbumin/creatinine ratio - at goal <30 not treated with RUBÉN/ARB B/P today- at goal of <140/90. Personally reviewed lipid panel. Not at Goal of less than 70. Not on statin therapy Assessment & Plan (02/26/2023 11:24 AM CDT): This is a chronic condition which is at goal of less than 7%. Personally reviewed most recent A1c - Lab Results Component Value Date HGBA1C 7.1 02/26/2023 Personally reviewed POC blood sugar- at goal 80-180 Lab Results Component Value Date POCGLU 127 02/26/2023 Medication- Continue Lantus 16 units daily . Monitor blood sugar daily. Continuously with freestyle merissa 3 sensor. - to avoid hypoglycemia due to frail conditions Encouraged annual eye exam. Monofilament foot exam completed. protective senses intact Personally reviewed CMP eGFR- 100 Kidney function- normal Urine microalbumin/creatinine ratio -at goal <30 not treated with RUBÉN/ARB B/P today- at goal of <140/90. Personally reviewed lipid panel. Not at Goal of less than 70. Not on statin therapy. Assessment & Plan (09/26/2022 11:19 AM CDT): This is a chronic condition which is at goal of less than 7%. Personally reviewed most recent A1c - Lab Results Component Value Date HGBA1C 7.3 09/26/2022 Personally reviewed POC blood sugar- at goal 80-180 Lab Results Component Value Date POCGLU 133 09/26/2022 Medication- Continue Lantus 16 units daily Monitor blood sugar daily Encouraged annual eye exam. last dilated eye exam was [place] in [facility]. She has cataract surgery scheduled for December. She will need bilateral cataract removal Monofilament foot exam completed. protective senses intact Urine microalbumin/creatinine ratio - at goal <30 not treated with RUBÉN/ARB Personally reviewed CMP eGFR- 100 Kidney function- normal B/P today-at goal of <140/90. Personally reviewed lipid panel. Not at Goal of less than 70. Not on statin therapy Assessment & Plan (04/29/2022 3:51 PM SWEETBREAD TRIMMER): This is a chronic condition which is at goal. Personally reviewed A1c -6.9% at goal less than 7% Medication- continue Lantus 16 units daily to avoid hypoglycemia. Monitor blood sugar 2 times a day. Encouraged annual eye exam. last dilated eye exam was [facility] [place] Monofilament foot exam completed, loss of protective senses. Personally reviewed labs from care everywhere GFR-100. Normal kidney function. Personally reviewed LDL - 129 Not at Goal of less than 70. not on statin therapy and not starting a statin on patient due to age and weakness. No history of macrovascular disease [place] Assessment & Plan (12/06/2021 12:02 PM CDT): This is a chronic condition which is at goal. Personally reviewed A1c -6.7% at goal less than 7% Medication- decrease Lantus 16 units daily to avoid hypoglycemia as she is frail and has dizziness when blood sugar is less than 100. Monitor blood sugar 2 times a day. Encouraged annual eye exam. last dilated eye exam was [facility] [place] Monofilament foot exam completed, loss of protective senses. Personally reviewed labs from care everywhere BUN-13, creatinine-0.68, GFR-100. Normal kidney function. Personally reviewed LDL - 129 currently not on a statin. Not at Goal of less than 70. not starting a statin on patient due to age and weakness. Ordered but not obtained. No history of macrovascular disease - [place] Assessment & Plan (09/03/2021 11:56 AM CDT): This is a chronic condition which is at goal. Personally reviewed A1c today-6.7% at goal less than 7% Personally reviewed blood sugar 162, at goal 80-180 Medication- decrease Lantus 20 daily to avoid hypoglycemia as she is frail. Monitor blood sugar 2 times a day. Encouraged annual eye exam. last dilated eye exam was [facility] [place] Monofilament foot exam completed, loss of protective senses. Urine microalbumin/creatinine ratio -xx currently not on Rubén/Arb, goal <30. Ordered but not obtained. Personally reviewed labs from care everywhere BUN-15, creatinine-0.51, GFR->90. Normal kidney function. B/P today- 124/72 , currently not on RUBÉN/ARB. At Goal blood pressure is <140/90 and as close to 120/80 as possible. Personally reviewed LDL - 129 currently not on a statin. Not at Goal of less than 70. not starting a statin on patient due to age and weakness. Ordered but not obtained. No history of macrovascular disease - [place] Assessment & Plan (06/04/2021 12:20 PM SWEETBREAD TRIMMER): This is a chronic condition which is at goal. Personally reviewed A1c today-6.8 at goal less than 7% Personally reviewed blood sugar 141, at goal 80-180 Medication- decrease Lantus 22 daily Monitor blood sugar 2 times a day. Encouraged annual eye exam. last dilated eye exam was [facility] [place] Monofilament foot exam completed, loss of protective senses. Urine microalbumin/creatinine ratio -xx currently not on Rubén/Arb, goal <30 Personally reviewed labs from care everywhere BUN-12, creatinine-0.63, GFR-85. Normal kidney function. B/P today- 128/72 , currently not on RUBÉN/ARB. At Goal blood pressure is <140/90 and as close to 120/80 as possible. Personally reviewed LDL - 129 currently not on a statin. Not at Goal of less than 70. not starting a statin on patient due to age and weakness. No history of macrovascular disease - [place] Assessment & Plan (02/27/2021 3:51 PM CDT): This is a chronic condition which is at goal. Personally reviewed A1c today- 7.0 at goal less than 7% Personally reviewed blood sugar 267, not at goal 80-180 Medication- Continue Lantus 25 daily Monitor blood sugar 2 times a day. Encouraged annual eye exam. last dilated eye exam was [facility] [place] Monofilament foot exam completed, loss of protective senses. Urine microalbumin/creatinine ratio -xx currently not on Rubén/Arb, goal <30 Personally reviewed labs from care everywhere BUN-12, creatinine-0.63, GFR-85. Normal kidney function. B/P today- 106/64 , currently not on RUBÉN/ARB. At Goal blood pressure is <140/90 and as close to 120/80 as possible. Personally reviewed LDL - 129 currently not on a statin. Not at Goal of less than 70. not starting a statin on patient due to age and weakness. No history of macrovascular disease - [place] Assessment & Plan (11/23/2020 5:14 PM CDT): This is a chronic condition which is at goal. Personally reviewed A1c today- 7.3 at goal less than 7% Personally reviewed blood sugar 204 goal 80-180 Medication- Continue Lantus 25 daily Monitor blood sugar 2 times a day. Encouraged annual eye exam. last dilated eye exam was [facility] [place] Monofilament foot exam completed, loss of protective senses. Urine microalbumin/creatinine ratio - will obtain, currently not on Rubén/Arb, goal <30 No labs available, will obtain B/P today- 128/72 , currently not on RUBÉN/ARB. At Goal blood pressure is <140/90 and as close to 120/80 as possible. Personally reviewed LDL - 129 currently not on a statin. Not at Goal of less than 70. Will address at next visit. No history of macrovascular disease - [place] Spondylosis without myelopat hy or radiculopathy, lumbar region 11/14/2020 Resolved Problems Problem Noted Date Diagnosed Date Resolved Date Chronic RLQ pain 07/13/2021 11/05/2023 Gastropathy 07/13/2021 11/05/2023 Chronic superficial gastriti s without bleeding 07/13/2021 11/05/2023 Tubular adenoma of colon 07/13/2021 Weight loss 06/27/2021 04/29/2022 Lower abdominal pain 06/04/2021 022 Assessment & Plan (09/03/2021 11:57 AM CDT): Resolved with treatment from GI. Assessment & Plan (06/04/2021 12:22 PM SWEETBREAD TRIMMER): This is a chronic condition which is worsening. Amb referral to Dr. Adrian. Her weight has decreased by 6 lb since her last office visit. She is eating good but she keeps loosing weight. She states, she has had stomach problems all her life but not like this. She reports lower left abd pain- occassional on the right. The pain is all the time but comes and goes. The pain happens every day. The pain is ache, shooting and feels like someone is japping her with a pick. Pain goes from 2 to a 6-7/10. Encounters Date Type Department Care Team Description 01/10/2025 11:00 AM CDT Office Visit [facility] at [address] [address] Sanjana Wills, FOOT SETTER Type 2 diabetes mellitus with diabetic polyneuropathy, with long-term current use of insulin (HCC) (Primary Dx); Hyperlipidemia associated with type 2 diabetes mellitus (HCC) from Last 3 Months Surgical History Surgery Date Site/Laterality Comments TONSILLECTOMY APPENDECTOMY OVARIAN CYSTECTOMY COLONOSCOPY 15- 20 years ago Medical History Medical History Date Comments Bilateral pulmonary embolism (HCC) Type 2 diabetes mellitus Chronic back pain GERD (gastroesophageal reflux disease) Weight loss 06/27/2021 Chronic RLQ pain 07/13/2021 Chronic superficial gastritis without bleeding 0 07/13/2021 Gastropathy 07/13/2021 Tubular adenoma of colon 07/13/2021 Family History Medical History Relation Name Comments Heart disease Maternal Grandfather Ovarian cancer Maternal Grandmother Pancreatic cancer Maternal Grandmother Relation Name Status Comments Maternal Grandfather Maternal Grandmother Social History Tobacco Use Types Packs/Day Years Used Date Smoking Tobacco: Former Smokeless Tobacco: Never Tobacco Cessation:Counseling Given: Not Answered Comments:quit 26 years ago AUDIT-C Answer Date [...] on file Legal Sex Female 9:56 AM SWEETBREAD TRIMMER Gender Identity Not on file Sexual Orientation Not on file Obstetrics History Last Filed Vital Signs Vital Sign Reading Time Taken Comments Blood Pressure 130/86 01/10/2025 11:03 AM CDT Pulse 82 08/10/2021 9:27 AM CDT Temperature 36.7 C (98 F) 07/04/2021 2:40 PM SWEETBREAD TRIMMER Respiratory Rate 20 07/04/2021 2:40 PM SWEETBREAD TRIMMER Oxygen Saturation 99% 08/10/2021 9:27 AM CDT Inhaled Oxygen Concentration - - Weight 86.2 kg (190 lb 1.6 oz) 01/10/2025 11:03 AM CDT Height 177.8 cm (5' 10) 01/10/2025 11:03 AM CDT Body Mass Index 27.28 01/10/2025 11:03 AM CDT Plan of Treatment Health Maintenance Due Date Last Done Comments Depression Screening 1940 Osteoporosis Screening-Bone Density Scan 1940 DTaP/Tdap/Td Vaccine (1 - Tdap) 1952 Hepatitis B Screening 08/16/1959 Pneumococcal vaccine 65+ (1 of 2 - PCV) 1960 Zoster Vaccine (1 of 2) 08/16/1991 Well Visit 65+ 2006 Fall Risk Assessment 07/04/2022 07/04/2021 Dilated Eye Exam 09/11/2024 09/11/2022, 08/30/2020 Influenza Vaccine (#1) 2025 , 02/05/2019, 02/11/2018, Additional history exists Albumin Creatinine Ratio, Urine 03/08/2025 03/08/2024, 02/26/2023, 04/29/2022 Foot Exam 03/08/2025 03/08/2024, 0601/2024, 07/02/2023, Additional history exists Lipid Panel 03/08/2025 03/08/2024, 02/16, 04/29/2022, Additional history exists eGFR 03/08/2025 03/08/2024, 02/16, 04/29/2022, Additional history exists Hemoglobin A1C 07/13/2025 01/10/2025, 06/20, 03/08/2024, Additional history exists Procedures Procedure Name Priority Date/Time Associated Diagnosis Comments POCT HEMOGLOBIN A1C Routine 01/10/2025 1 1:06 AM CDT Type 2 diabetes mellitus with diabetic polyneuropathy, with long-term current use of insulin (HCC) POCT GLUCOSE Routine 01/10/2025 11:04 AM CDT Type 2 diabetes mellitus with diabetic polyneuropathy, with long-term current use of insulin (HCC) EGFR Routine 03/08/2024 3:00 PM CDT Type 2 diabetes mellitus with hypoglycemia without coma, with long-term current use of insulin (HCC) LIPID PANEL Routine 03/08/2024 3:00 PM CDT Type 2 diabetes mellitus with hypoglycemia without coma, with long-term current use of insulin (HCC) ALBUMIN CREATININE RATIO, URINE Routine 03/08/2024 3:00 PM CDT Type 2 diabetes mellitus with hypoglycemia without coma, with long-term current use of insulin (HCC) DIABETIC EYE EXAM Routine 09/11/2022 from Last 3 Months or Most Recently Relevant to Health Maintenance Results * (ABNORMAL) POCT hemoglobin A1c (01/10/2025 11:06 AM CDT) Hemoglobin A1C, POC 6.7(A) 4.0 - 5.6 % Blood 01/10/2025 11:0 6 AM CDT us Sanjana Wills NP POINT OF CARE TEST ORDERABLES F inal Result * POCT glucose (01/10/2025 11:04 AM CDT) Pathologist [facility] Glucose Blood, POC 130 Normal Fasting 70 - 100, Random <200 mg/dL Blood 01/10/2025 11:0 4 AM CDT Sanjana Wills NP POINT OF CARE TEST ORDERABLES F inal Result * eGFR (03/08/2024 3:00 PM CDT) Pathologist [facility] eGFR 90 >=60 mL/min/1. 73 m2 Comment: Interpretive Data Reference Interval Normal >/= 90 mL/min/1.73m2 Mildly decreased* 60 - 89 mL/min/1.73m2 Mildly to moderately decreased 45 - 59 mL/min/1.73m2 Moderately to severely decreased 30 - 44 mL/min/1.73m2 Severely decreased 15 - 29 mL/min/1.73m2 Kidney Failure < 15 mL/min/1.73m2 *Relative to young adult level Estimated glomerular filtration rate is determined by the 2020 CKD-EPI equation recommended by the National Kidney Foundation (A Unifying Approach to GFR Estimation: Recommendations of the NKF-ASK Task Force on Reassessing the Inclusion of Race in Diagnosing Kidney Disease, JASN 2020). The CKD-EPI equation should not be used for patients with unstable renal function and has not been validated in children and those over 70. Current interpretive data was last reviewed 2021. Blood 03/08/2024 3:00 PM CDT 03/08/2024 7:44 PM CDT Sanjana Wills NP LAB BLOOD ORDERABLES Final Resu lt AYLEEN SMITH [id number] Department [place] [address] * (ABNORMAL) Albumin Creatinine Ratio, Urine (03/08/2024 3:00 PM CDT) Pathologist [facility] Albumin Ur 32.5 mg/L Comment: Interpretive Data No reference range established. Current interpretive data was last revised 2018. Creatinine Ur 73.3 mg/dL AYLEEN SMITH Comment: Interpretive Data No reference range established. Current interpretive data was last revised 2018. Albumin Creatinine Ratio, Ur 44(H) 1 - 29 mg/g AYLEEN Urine 03/08/2024 3:00 PM CDT 03/08/2024 7:34 PM CDT us Sanjana Wills NP LAB URINE ORDERABLES Final Resu lt AYLEEN [id number] Department [place] [address] * (ABNORMAL) Lipid panel (03/08/2024 3:00 PM CDT) Cholesterol 229(H) 30 - 199 mg/dL Comment: Interpretive Data Ages < or = 19 years Acceptable: <170 mg/dL Borderline high: 170-199 mg/dL High: >or= 200 mg/dL Ages > or = 20 years Desirable: <200 mg/dL Borderline high: 200-239 mg/dL High: >or= 240 mg/dL Literature References: 1. Expert Panel on Integrated Guidelines for Cardiovascular Health and Risk Reduction in Children and Adolescents. Pediatrics 2011;128:S213 2. NCEP Expert Panel. Circulation 2004;110:227 Current Interpretive Data was last revised on 2018. Triglycerides 111 <=149 mg/dL AYLEEN Comment: Interpretive Data Ages < or = 9 years Acceptable: <75 mg/dL Borderline high: 75-99 mg/dL High: >or= 100 mg/dL Ages 10 to 20 years Acceptable: <90 mg/dL Borderline high: 90-129 mg/dL High: >or= 130 mg/dL Ages > or = 20 years Desirable: <150 mg/dL Borderline high: 150-199 mg/dL High: 200-499 mg/dL Very high: >or= 499 mg/dL Literature References: 1. Expert Panel on Integrated Guidelines for Cardiovascular Health and Risk Reduction in Children and Adolescents. Pediatrics 2011;128:S213 2. NCEP Expert Panel. Circulation 2004;110:227 Current Interpretive Data was last revised on 2018. HDL 68 >=40 mg/dL AYLEEN Comment: Interpretive Data Ages < or = 19 years Acceptable: >45 mg/dL Borderline low: 40-45 mg/dL Low: <40 mg/dL Ages > or = 20 years Desirable: >or= 60 mg/dL Low: <40 mg/dL Literature References: 1. Expert Panel on Integrated Guidelines for Cardiovascular Health and Risk Reduction in Children and Adolescents. Pediatrics 2011;128:S213 2. NCEP Expert Panel. Circulation 2004;110:227 Current Interpretive Data was last revised on 2018. LDL, calculated 142(H) <=129 mg/dL AYLEEN SMITH Comment: Interpretive Data Ages < or = 19 years Acceptable: <110 mg/dL Borderline high: 110-129 mg/dL High: >or= 130 mg/dL Ages > or = 20 years Optimal: <100 mg/dL Near optimal: 100-129 mg/dL Borderline high: 130-159 mg/dL High: >160 mg/dL Calculated using the Edmond LDL-C estimating equation. This equation was implemented on 2024. Prior to this date LDL-C was estimated using the Friedewald equation. Literature References: 1. Expert Panel on Integrated Guidelines for Cardiovascular Health and Risk Reduction in Children and Adolescents. Pediatrics 2011;128:S213 2. NCEP Expert Panel. Circulation 2004;110:227 3. Edmond Matute et al. RON Cardiol. 2019September 16;5(5):540-548. doi: 10.1001/jamacardio.2020.0013 Current Interpretive Data was last revised on 2024. Non-HDL Cholesterol 161 mg/dL AYLEEN SMITH Comment: Interpretive Data Ages < or = 19 years Acceptable: <120 mg/dL Borderline high: 120-144 mg/dL High: >145 mg/dL Ages > or = 20 years When triglycerides are >200 mg/dL, Non-HDL cholesterol is a secondary target of therapy with treatment goals that are 30 mg/dL greater than the LDL cholesterol target. Literature References: 1. Expert Panel on Integrated Guidelines for Cardiovascular Health and Risk Reduction in Children and Adolescents. Pediatrics 2011;128:S213 2. NCEP Expert Panel. Circulation 2004;110:227 Current Interpretive Data was last revised on 2018. Chol/HDL ratio 3 AYLEEN Blood 03/08/2024 3:00 PM CDT 03/08/2024 7:34 PM CDT Narrative AYLEEN SMITH - 03/08/2024 8:06 PM CDT These lab test should be done fasting. This means do not eat or drink for at least 12 hours prior to getting your blood drawn. us Sanjana Wills NP LAB BLOOD ORDERABLES Final Resu lt AYLEEN [id number] [address] Department [place] [address] * Diabetic Eye Exam (09/11/2022) Historical Provider MD HEALTH MAINTENANCE Final Result from Last 3 Months or Most Recently Relevant to Health Maintenance [place] [address] [place] [address] COMMERCIAL GENERIC Advance Directives For more information, please contact: [phone] * Full Code (Latest Code Status on File) Date Activated Date Inactivated Comments 07/04/2021 12:09 PM 07/04/2021 7:22 PM * Full Code Date Activated Date Inactivated Comments 07/04/2021 12:09 PM 07/04/2021 12:09 PM Care Teams Cosmetic Maker Relationship Specialty Start Date End Date Brian Anderson MD PCP - General Family Medicine 11/17/20
[2025-03-18 09:01] LABS: INR 3.4; Prothrombin Time 33.5 Seconds (9.50-12.1)
[2025-03-18 09:32] LABS: Alanine Aminotransferase 29 U/L (6-35); Albumin Level 4.5 g/dL (3.5-5.1); Alkaline Phosphatase 65 U/L (38-126); Anion Gap 9 mmol/L (4-12); Aspartate Amino Transferase 35 U/L (14-36); Bilirubin,Total 0.8 mg/dL (0.2-1.3); Blood Urea Nitrogen 16 mg/dL (7-17); Calcium 9.9 mg/dL (8.4-10.2); Carbon Dioxide 29 mmol/L (22-30); Chloride 103 mmol/L (98-107); Estimated Glomerular Filt Rate > 60; Glucose 118 mg/dL (65-110); Osmolality Calculated 294 mOsm/kg (285-295); Potassium 4.7 mmol/L (3.4-5.0); Sodium 141 mmol/L (137-145); Total Protein 7.0 g/dL (6.3-8.2)
== END 2025-03-18 08:19 | disposition home or self-care (01) ==
PROVIDERS: PCP Family Medicine; Visit Provider Family Medicine
DX: E11.9 Type 2 diabetes mellitus without complications (principal); Z79.01 Long term (current) use of anticoagulants
CPT/HCPCS: 36415; 80053; 85610